=== PATIENT | female | born 1960 | race Two or more races ===

== ENCOUNTER 2021-05-11 18:44 | Emergency (ER) | payer MEDICAID, OTHER ==
[~2021-05-11] VITALS: Ht 134.6 cm; Wt 61.7 kg
[2021-05-11 18:44] VITALS: BP 153/100
== END 2021-05-12 00:35 | disposition left against medical advice (07) ==
LOC: ER 18:47
DX: R21 Rash and other nonspecific skin eruption (principal); Z53.21 Procedure and treatment not carried out due to patient leaving prior to being seen by health care provider

== ENCOUNTER 2022-10-05 03:44 | Inpatient (IN) | payer MEDICAID ==
[2022-10-05] VITALS (16 sets, daily range): BP systolic 77–164; BP diastolic 50–113
[~2022-10-05] VITALS: Ht 157.5 cm; Wt 62.0 kg
[2022-10-05] MEDS ORDERED: ETOMIDATE (2MG/ML) 20ML VIAL IV ONE ×3 (04:19→04:30)
[2022-10-05] MEDS ORDERED: ROCURONIUM 10MG/ML 10ML VIAL IV ONE ×3 (04:19→04:30)
[2022-10-05] MEDS ORDERED: MIDAZOLAM DRIP 50 mg/50mL 50 ML IV ONE (04:22)
[2022-10-05] MEDS ORDERED: methylPREDNISolone SOD SUCC 125 MG/2 ML VL ONE (04:28)
[2022-10-05] MEDS ORDERED: LIDOCAINE HCL 2 % INJ 2ML MPF NEB ONE (04:30)
[2022-10-05] MEDS: MIDAZOLAM DRIP 50 mg/50mL 50 ML IV SCH ×2 (04:40→22:53)
[2022-10-05] MEDS ORDERED: methylPREDNISolone SOD SUCC 125 MG/2 ML VL IV ONE (04:45)
[2022-10-05] MEDS ORDERED: MIDAZOLAM DRIP 50 mg/50mL 50 ML IV SCH (04:45)
[2022-10-05] MEDS ORDERED: PROPOFOL 100 ML IV ONE (05:00)
[2022-10-05] MEDS: PROPOFOL 100 ML IV SCH (05:06)
[2022-10-05] MEDS ORDERED: FAMOTIDINE (10MG/ML) 2ML VL IV ONE (05:15)
[2022-10-05] MEDS ORDERED: diphenhdrAMINE HCL 50 MG/1 ML VL IV ONE (05:15)
[2022-10-05 05:57] LABS: Basophils # (auto) 0 10 ^3/uL (0-0.2); Basophils % (auto) 0.4 % (0.0-2.0); Eosinophils # (auto) 0.1 10 ^3/uL (0-0.8); Eosinophils % (auto) 0.9 % (0.0-7.0); Hematocrit 38.3 % (36.0-46.0); Hemoglobin 13.1 g/dL (12.2-16.2); Lymphocytes # (auto) 3.6 10 ^3/uL (0.4-5.4); Lymphocytes % (auto) 39.7 % (10.0-50.0); Mean Corpuscular Hemoglobin 30.1 pg (28.0-32.0); Mean Corpuscular Hgb Conc. 34.1 g/dL (32.0-36.0); Mean Corpuscular Volume 88.4 fL (80.0-100.0); Monocytes # (auto) 0.8 10 ^3/uL (0-1.3); Monocytes % (auto) 9.2 % (0.0-12.0); Neutrophils # (auto) 4.6 10 ^3/uL (1.6-8.6); Neutrophils % (auto) 49.8 % (37.0-80.0); Nucleated Red Blood Cells % 0.1 %; Red Blood Cells 4.34 10^6/uL (4.0-5.20); Red Cell Distribution Width 13.5 % (11.8-14.3); White Blood Cell 9.1 10^3/uL (4.4-10.8)
[2022-10-05 06:17] LABS: INR 0.97 (0.9-1.15); Partial Thromboplastin Time 28.5 sec (24.6-33.4)
[2022-10-05 06:20] LABS: Albumin 3.7 g/dL (3.4-5.0); BUN/Creatinine Ratio 24.4; Potassium 3.6 mmol/L (3.5-5.1)
[2022-10-05 06:23] LABS: Bilirubin, Total 0.4 mg/dL (0.2-1.0); Total Protein 7.7 g/dL (6.4-8.2)
[2022-10-05] MEDS ORDERED: ONDANSETRON HCL 4 MG/2 ML VIAL IV PRN (06:30)
[2022-10-05] MEDS ORDERED: ACETAMINOPHEN 325 MG TAB PO PRN (06:30)
[2022-10-05] MEDS ORDERED: DEXTROSE (50%) 50ML SYRG IV PRN (06:30)
[2022-10-05] MEDS ORDERED: NITROGLYCERIN 0.4 MG SL TAB SL PRN (06:30)
[2022-10-05] MEDS ORDERED: MORPHINE SULFATE INJ 2 MG/ml SYRG IV PRN (06:30)
[2022-10-05] MEDS: SODIUM CHLORIDE 0.9% 1,000 ML IV SCH ×2 (07:07→22:45)
[2022-10-05] MEDS ORDERED: NOREPINEPHRINE 8 MG/250ML KIT 250 ML IV ONE (07:58)
[2022-10-05] MEDS: NOREPINEPHRINE 8 MG/250ML KIT 250 ML IV SCH (08:06)
[2022-10-05] MEDS: cefTRIAXone 1GM/50ML D5W 50 ML IV SCH (08:47)
[2022-10-05 08:58] LABS: Urine Bacteria FEW /hpf (None Seen); Urine Blood Negative /uL (Negative); Urine Specific Gravity 1.012 (1.001-1.035); Urine WBC 4 /hpf (0 - 5)
[2022-10-05] MEDS: AZITHROMYCIN 500MG/ 250ML 250 ML IV SCH (09:57)
[2022-10-05] MEDS: methylPREDNISolone SOD SUCC 40 MG/ML VL IV SCH ×2 (10:03→22:49)
[2022-10-05] MEDS: ENOXAPARIN SOD 40 MG/0.4 ML SYRINGE SC SCH (10:03)
[2022-10-05] MEDS: fentaNYL Drip 2500mCg/250mlNS 250 ML IV SCH (11:26)
[2022-10-05] MEDS: InsuLIN REG 1unit/0.01ml Soln (100units/ml) SC SCH ×2 (12:15→18:19)
[2022-10-05] MEDS: ACCU-CHEK COMFORT CURVE STRIP VI SCH ×2 (12:36→17:55)
[2022-10-06] VITALS (45 sets, daily range): BP systolic 113–156; BP diastolic 67–90
[2022-10-06] MEDS: ACCU-CHEK COMFORT CURVE STRIP VI SCH ×4 (00:20→18:01)
[2022-10-06] MEDS: InsuLIN REG 1unit/0.01ml Soln (100units/ml) SC SCH ×4 (00:23→18:11)
[2022-10-06] MEDS: MIDAZOLAM DRIP 50 mg/50mL 50 ML IV SCH (03:21)
[2022-10-06] MEDS: PROPOFOL 100 ML IV SCH (05:00)
[2022-10-06 06:58] LABS: Potassium 3.3 mmol/L (3.5-5.1)
[2022-10-06 06:59] LABS: Basophils # (auto) 0 10 ^3/uL (0-0.2); Eosinophils # (auto) 0 10 ^3/uL (0-0.8); Hematocrit 36.4 % (36.0-46.0); Hemoglobin 12.2 g/dL (12.2-16.2); Lymphocytes # (auto) 1.4 10 ^3/uL (0.4-5.4); Mean Corpuscular Hemoglobin 29.1 pg (28.0-32.0); Mean Corpuscular Hgb Conc. 33.4 g/dL (32.0-36.0); Mean Corpuscular Volume 87.2 fL (80.0-100.0); Monocytes # (auto) 0.4 10 ^3/uL (0-1.3); Monocytes % (auto) 2.6 % (0.0-12.0); Neutrophils # (auto) 12.3 10 ^3/uL (1.6-8.6); Neutrophils % (auto) 87.4 % (37.0-80.0); Nucleated Red Blood Cells % 0.2 %; Red Blood Cells 4.18 10^6/uL (4.0-5.20); Red Cell Distribution Width 13.6 % (11.8-14.3); White Blood Cell 14.1 10^3/uL (4.4-10.8)
[2022-10-06 07:11] LABS: BUN/Creatinine Ratio 24.1; Bilirubin, Total 0.4 mg/dL (0.2-1.0); Calcium 8.8 mg/dL (8.5-10.1); Total Protein 7.1 g/dL (6.4-8.2)
[2022-10-06] MEDS: SODIUM CHLORIDE 0.9% 1,000 ML IV SCH ×2 (07:42→22:34)
[2022-10-06] MEDS: NOREPINEPHRINE 8 MG/250ML KIT 250 ML IV SCH (07:43)
[2022-10-06] MEDS: AZITHROMYCIN 500MG/ 250ML 250 ML IV SCH (10:21)
[2022-10-06] MEDS: FAMOTIDINE (10MG/ML) 2ML VL IV SCH (10:21)
[2022-10-06] MEDS: methylPREDNISolone SOD SUCC 40 MG/ML VL IV SCH ×2 (10:21→21:49)
[2022-10-06] MEDS: ENOXAPARIN SOD 40 MG/0.4 ML SYRINGE SC SCH (10:22)
[2022-10-06] MEDS: fentaNYL Drip 2500mCg/250mlNS 250 ML IV SCH (10:45)
[2022-10-06] MEDS ORDERED: methylPREDNISolone SOD SUCC 40 MG/ML VL IV ONE (12:00)
[2022-10-06] MEDS: cefTRIAXone 1GM/50ML D5W 50 ML IV SCH (12:16)
[2022-10-07] VITALS (18 sets, daily range): BP systolic 117–159; BP diastolic 65–92
[2022-10-07] MEDS: ACCU-CHEK COMFORT CURVE STRIP VI SCH ×5 (00:03→23:33)
[2022-10-07] MEDS: InsuLIN REG 1unit/0.01ml Soln (100units/ml) SC SCH ×5 (00:08→23:35)
[2022-10-07 04:20] LABS: Basophils # (auto) 0.1 10 ^3/uL (0-0.2); Basophils % (auto) 0.5 % (0.0-2.0); Eosinophils # (auto) 0 10 ^3/uL (0-0.8); Hematocrit 36.3 % (36.0-46.0); Hemoglobin 12.1 g/dL (12.2-16.2); Lymphocytes # (auto) 0.9 10 ^3/uL (0.4-5.4); Mean Corpuscular Hemoglobin 29.5 pg (28.0-32.0); Mean Corpuscular Hgb Conc. 33.2 g/dL (32.0-36.0); Mean Corpuscular Volume 88.9 fL (80.0-100.0); Monocytes # (auto) 0.4 10 ^3/uL (0-1.3); Monocytes % (auto) 2.1 % (0.0-12.0); Neutrophils # (auto) 15.9 10 ^3/uL (1.6-8.6); Neutrophils % (auto) 92.4 % (37.0-80.0); Red Blood Cells 4.08 10^6/uL (4.0-5.20); Red Cell Distribution Width 14.3 % (11.8-14.3); White Blood Cell 17.2 10^3/uL (4.4-10.8)
[2022-10-07 04:36] LABS: Calcium 8.9 mg/dL (8.5-10.1); Potassium 3.5 mmol/L (3.5-5.1)
[2022-10-07 04:38] LABS: BUN/Creatinine Ratio 26.9
[2022-10-07] MEDS: NOREPINEPHRINE 8 MG/250ML KIT 250 ML IV SCH (08:00)
[2022-10-07] MEDS: SODIUM CHLORIDE 0.9% 1,000 ML IV SCH ×2 (08:30→12:01)
[2022-10-07] MEDS: cefTRIAXone 1GM/50ML D5W 50 ML IV SCH (08:57)
[2022-10-07] MEDS: FAMOTIDINE (10MG/ML) 2ML VL IV SCH (09:36)
[2022-10-07] MEDS: methylPREDNISolone SOD SUCC 40 MG/ML VL IV SCH ×2 (09:36→21:30)
[2022-10-07] MEDS: AZITHROMYCIN 500MG/ 250ML 250 ML IV SCH (09:37)
[2022-10-07] MEDS: ENOXAPARIN SOD 40 MG/0.4 ML SYRINGE SC SCH (09:37)
[2022-10-08 05:00] VITALS: BP 163/93
[2022-10-08] MEDS ORDERED: hydrALAZINE HCL 10 MG TAB PO PRN (05:30)
[2022-10-08] MEDS: ACCU-CHEK COMFORT CURVE STRIP VI SCH (05:48)
[2022-10-08] MEDS: InsuLIN REG 1unit/0.01ml Soln (100units/ml) SC SCH (05:50)
[2022-10-08 06:15] LABS: Basophils # (auto) 0 10 ^3/uL (0-0.2); Basophils % (auto) 0.1 % (0.0-2.0); Eosinophils # (auto) 0 10 ^3/uL (0-0.8); Hematocrit 41.7 % (36.0-46.0); Hemoglobin 13.7 g/dL (12.2-16.2); Lymphocytes # (auto) 1.2 10 ^3/uL (0.4-5.4); Lymphocytes % (auto) 10.1 % (10.0-50.0); Mean Corpuscular Hgb Conc. 32.9 g/dL (32.0-36.0); Mean Corpuscular Volume 88.1 fL (80.0-100.0); Monocytes # (auto) 0.4 10 ^3/uL (0-1.3); Monocytes % (auto) 3.1 % (0.0-12.0); Neutrophils # (auto) 10.7 10 ^3/uL (1.6-8.6); Neutrophils % (auto) 86.7 % (37.0-80.0); Red Blood Cells 4.74 10^6/uL (4.0-5.20); Red Cell Distribution Width 13.5 % (11.8-14.3); White Blood Cell 12.4 10^3/uL (4.4-10.8)
[2022-10-08 06:37] LABS: Potassium 3.9 mmol/L (3.5-5.1)
[2022-10-08 06:43] LABS: BUN/Creatinine Ratio 32.8; Calcium 9.1 mg/dL (8.5-10.1)
[2022-10-08] MEDS: cefTRIAXone 1GM/50ML D5W 50 ML IV SCH (09:00)
[2022-10-08] MEDS ORDERED: GLIP5TAB12 PO (09:41)
[2022-10-08] MEDS ORDERED: ENAL10TA13 PO (09:41)
[2022-10-08] MEDS ORDERED: METO25TA5 PO (09:43)
[2022-10-08] MEDS ORDERED: AMLO-489 PO (09:43)
[2022-10-08] MEDS ORDERED: METF-929 PO (09:43)
[2022-10-08] MEDS ORDERED: SIMV-8 PO (09:43)
[2022-10-08] MEDS ORDERED: AMOX500T86 PO (09:48)
[2022-10-08] MEDS: AZITHROMYCIN 500MG/ 250ML 250 ML IV SCH (10:00)
[2022-10-08] MEDS: FAMOTIDINE (10MG/ML) 2ML VL IV SCH (10:00)
[2022-10-08] MEDS: ENOXAPARIN SOD 40 MG/0.4 ML SYRINGE SC SCH (10:00)
[2022-10-08] MEDS: methylPREDNISolone SOD SUCC 40 MG/ML VL IV SCH (10:00)
[2022-10-08 11:48] VITALS: BP 163/93
== END 2022-10-08 12:43 | disposition home or self-care (01) | DRG 133 ==
LOC: ER 03:44 → OVERFLOW 06:26 → TELE-CENTR 10-06 10:39 → ICU WEST 10-06 10:40 → TELE-CENTR 10-07 19:15
PROVIDERS: ADMIT Nurse Practitioner; ATTEND Internal Medicine Pulmonary Disease
PROC: 30233K1 Transfusion of Nonautologous Frozen Plasma into Peripheral Vein, Percutaneous Approach (ICD-10-PCS; principal; 2022-10-05)
PROC: 5A1945Z Respiratory Ventilation, 24-96 Consecutive Hours (ICD-10-PCS; 2022-10-05)
PROC: 0BH17EZ Insertion of Endotracheal Airway into Trachea, Via Natural or Artificial Opening (ICD-10-PCS; 2022-10-05)
DX: J96.01 Acute respiratory failure with hypoxia (principal); J18.9 Pneumonia, unspecified organism; E87.3 Alkalosis; T78.3XXA Angioneurotic edema, initial encounter; T46.4X5A Adverse effect of angiotensin-converting-enzyme inhibitors, initial encounter; I10 Essential (primary) hypertension; Z20.822 Contact with and (suspected) exposure to COVID-19; E78.5 Hyperlipidemia, unspecified; E11.9 Type 2 diabetes mellitus without complications; Y92.89 Other specified places as the place of occurrence of the external cause
CPT/HCPCS: 31500; 36415; 36600; 70490; 71045; 80048; 80053; 81001; 82805; 82962; 83735; 83880; 84484; 85025; 85610; 85730; 86850; 86900; 86901; 87070; 87081; 87205; 87426; 93005; 94002; 94003; 96374; 96375; 97163; 99291; G0378; J0696; J1815; J2250; J2704; J3490

== ENCOUNTER 2023-09-15 14:26 | Emergency (ER) | payer MEDICAID ==
[~2023-09-15] VITALS: Ht 121.9 cm; Wt 60.8 kg
[~2023-09-15 14:26] MED LIST: AMLO1TAB22 PO; AMOX500T86 PO; GLIP5TAB12 PO; METF-929 PO; METO25TA5 PO; SIMV20TA20 PO
[2023-09-15 16:09] VITALS: BP 149/93; PULSE 100; RESP 19; TEMP 97.6; O2SAT 97
[2023-09-15] MEDS ORDERED: ACET-1304 PO (16:15)
[2023-09-15] MEDS ORDERED: CEPH500C PO (16:15)
== END 2023-09-15 16:23 | disposition home or self-care (01) ==
LOC: ER 14:26
DX: S81.831D Puncture wound without foreign body, right lower leg, subsequent encounter (principal); I10 Essential (primary) hypertension; E11.9 Type 2 diabetes mellitus without complications; E78.5 Hyperlipidemia, unspecified; Z79.2 Long term (current) use of antibiotics; Z79.899 Other long term (current) drug therapy; X58.XXXD Exposure to other specified factors, subsequent encounter

== ENCOUNTER 2023-12-07 21:43 | Emergency (ER) | payer MEDICAID ==
[~2023-12-07] VITALS: Ht 157.5 cm; Wt 59.7 kg
[~2023-12-07 21:43] MED LIST changes: +ACET-1304 PO; +CEPH500C PO; -GLIP5TAB12 PO; +GLIP5TAB21 PO
[2023-12-07 21:59] VITALS: BP 128/80
[2023-12-07 23:15] VITALS: PULSE 75; RESP 18; O2SAT 99
== END 2023-12-07 23:22 | disposition home or self-care (01) ==
LOC: ER 21:43
DX: S00.83XA Contusion of other part of head, initial encounter (principal); F10.129 Alcohol abuse with intoxication, unspecified; Y90.9 Presence of alcohol in blood, level not specified; E11.9 Type 2 diabetes mellitus without complications; E78.5 Hyperlipidemia, unspecified; I10 Essential (primary) hypertension; W17.89XA Other fall from one level to another, initial encounter; Y93.89 Activity, other specified; Y92.89 Other specified places as the place of occurrence of the external cause; Y99.8 Other external cause status
CPT/HCPCS: 70486

== ENCOUNTER 2025-04-11 09:57 | Emergency (ER) | payer OTHER, MEDICAID ==
[~2025-04-11] VITALS: Ht 154.9 cm; Wt 57.0 kg
--- NOTE | 2025-04-11 10:20 | ED.PDOC ---
Back pain HPI HPI Comments A 64 YEAR OLD FEMALE PRESENTS TO THE ED WITH COMPLAINT OF RIGHT HIP PAIN THAT RADIATES DOWN RIGHT LEG. PATIENT STATES SHE HAS BEEN EXPERIENCING RIGHT HIP PAIN THAT RADIATES DOWN HER RIGHT LEG FOR THE PAST 4 DAYS. PATIENT DENIES SADDLE ANESTHESIA, URINARY INCONTINENCE, BOWEL INCONTINENCE, FEVER, CHILLS, SHORTNESS OF BREATH, CHEST PAIN, ABDOMINAL PAIN, NAUSEA, VOMITING, HEADACHE, OR OTHER COMPLAINTS. NO OTHER SYMPTOMS OR MODIFYING FACTORS AT THIS TIME. PATIENT IS ALERT, ORIENTED X 4, AND HAS STEADY GAIT. Chief Complaint: Lower Extremity Time Seen by MD: 10:03 Reviewed Notes: Nurses Notes, Medications, Allergies Allergies: Coded Allergies: No Known Drug Allergy (Verified Allergy, Unknown, 05/11/21) Home Meds Active Scripts Tramadol HCl (Tramadol HCl) 50 Mg Tab, 50 MG PO BID, #20 TAB Prov:HARLEEN GRAY 04/11/25 Acetaminophen (Tylenol Extra Strength Fo) 500 Mg Tab, 500 MG PO TID, #30 TAB Prov:HARLEEN GRAY 09/15/23 Cephalexin Monohydrate (Cephalexin) 500 Mg Cap, 1 CAP PO TID, #30 CAP Prov:HARLEEN GRAY 09/15/23 Amoxicillin & Pot Clavulanate (Augmentin) 500 Mg Tab, 1 TAB PO BID, #10 TAB Prov:MIRZA CRAMER MD 10/08/22 Reported Medications Metformin HCl (Metformin Hydrochloride) 1,000 Mg Tab, 1000 MG PO, TAB 10/08/22 Metoprolol Tartrate (Metoprolol Tartrate) 25 Mg Tab, 25 MG PO for 30 Days, MG 10/08/22 Simvastatin (Simvastatin) 20 Mg Tab, 20 MG PO DAILY for 30 Days 10/08/22 Amlodipine Besylate (Amlodipine Besylate) 5 Mg Tab, 5 MG PO DAILY for 30 Days, MG 10/08/22 Glipizide (Glipizide) 5 Mg Tab, 5 MG PO for 30 Days, MG 10/08/22 Information Source: Patient Mode of Arrival: Ambulatory Timing: Days Duration: Since onset Location of Back pain: Other (HIP) Radiates to: Posterior: (R) Buttocks, (R) Calf, (R) Thigh Radiates to: Medial: (R) Buttocks, (R) Calf, (R) Thigh Radiates to: Lateral: (R) Buttocks, (R) Calf, (R) Thigh Severity: Moderate Prehospital treatment: None Quality: Aching, Cramping Onset: Spontaneous History of: None Modifying Factors: Movement Associated signs and symptoms: None Past Medical History PAST MEDICAL HISTORY: DM, High Lipids, HTN Surgical History: Denies all surgeries 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 Family History Family History: Reviewed,noncontributory to illness, No family hx of Cancer, No family hx of DM, No family hx of Heart gustavo, No family hx of HTN, No family hx ofKidney gustavo, No family hx of Liver gustavo, No family hx of Lung gustavo, No family hx of Stroke Social History Smoker: Non-Smoker Alcohol: Denies ETOH Use Drugs: Denies Drug Use Lives In: Home Constitutional: denies: chills, diaphoresis, fatigue, fever, malaise, sweats, weakness, others EENTM: denies: blurred vision, double vision, ear bleeding, ear discharge, ear drainage, ear pain, ear ringing, eye pain, eye redness, hearing loss, mouth pain, mouth swelling, nasal discharge, nose bleeding, nose congestion, nose pain, photophobia, tearing, throat pain, throat swelling, voice changes, others Respiratory: denies: cough, hemoptysis, orthopnea, SOB at rest, shortness of breath, SOB with excertion, stridor, wheezing, others Cardiovascular: denies: chest pain, dizzy spells, diaphoresis, Dyspnea on exertion, edema, irregular heart beat, left arm pain, lightheadedness, palpitations, PND, syncope, others Gastrointestinal: denies: abdomen distended, abdominal pain, blood streaked bowels, constipated, diarrhea, dysphagia, difficulty swallowing, hematemesis, melena, nausea, poor appetite, poor fluid intake, rectal bleeding, rectal pain, vomiting, others Genitourinary: denies: abnormal vagina bleeding, burning, dyspareunia, dysuria, flank pain, frequency, hematuria, incontinence, pain, , vagina discharge, urgency, others Neurological: denies: dizziness, fainting, headache, left sided numbness, left sided weakness, numbness, paresthesia, pre-existing deficit, right sided num bness, right sided weakness, seizure, speech problems, tingling, tremors, weakness, others Musculoskeletal: reports: back pain, muscle pain, others (RIGHT HIP PAIN THAT RADIATES DOWN RIGHT LEG); denies: gout, joint pain, joint swelling, muscle stiffness, neck pain Integumetry: denies: bruises, change in color, change in hair/nails, dryness, laceration, lesions, lumps, rash, wounds, others Allergic/Immunocompromised: denies: Difficulty Healing, Frequent Infections, Hives, Itching, others Hematologic/Lymphatic: denies: anemia, blood clots, easy bleeding, easy bruising, swollen glands, others Endocrine: denies: excessive hunger, excessive sweating, excessive thirst, excessive urination, flushing, intolerance to cold, intolerance to heat, unexplained weight gain, unexplained weight loss, others Psychiatric: denies: anxiety, bipolar disorder, depression, hopeless, panic disorder, schizophrenia, sleepless, suicidal, others All Other Systems: Reviewed and Negative Physical Exam General Appearance: No Apparent Distress, Normal HEENT: Normal ENT Inspection, PERRL/EOMI, Pharynx Normal, TMs Normal Neck: Full Range of Motion, Non-Tender, Normal, Normal Inspection Respiratory: Chest Non-Tender, Lungs Clear, No Accessory Muscle Use, No Respiratory Distress, Normal Breath Sounds Cardiovascular: No Edema, No JVD, No Murmur, No Gallop, Normal Peripheral Pulses, Regular Rate/Rhythm Breast Exam: Deferred Gastrointestinal: No Organomegaly, Non Tender, No Pulsatile Mass, Normal Bowel Sounds, Soft Genitalia: Deferred Pelvic: Deferred Rectal: Deferred Extremities: No calf tenderness, Normal capillary refill, Normal inspection, Normal range of motion, Non-tender, No pedal edema, Other (NO REDNESS, SWELLING AND DVT SIGNS OF RIGHT LOWER LEG, NO DVT SIGNS. ) Musculoskeletal : Location: Bilateral Extremity Location: Back Apperance: Tenderness (AND MUSCLE SPASM ON LOW BACK, NO BONY TENDERNESS, SWELLING AND DEFORMITY. ) Neurologic: Alert, softball umpire II-XII nml as Tested, No Motor Deficits, Normal Affect, Normal Mood, No Sensory Deficits Cerebellar Function: Normal Reflexes: Normal Skin: Dry, Normal Color, Warm Peripheral Pulses: 2+ carotid (R), 2+ carotid (L), 2+ dorsalis pedis (R), 2+ dorsalis pedis (L) Lymphatic: No Adenopathy Was a procedure done? Was a procedure done?: No Back Pain Differential Dx Differential Diagnosis: DJD, Musculoskeletal Pain, Strain Other Differential Diagnosis DDD, LUMBAR RADICULOPATHY X-Ray, Labs, Meds, VS Vital Signs Date Time Temp Pulse Resp B/P (MAP) Pulse Ox O2 Delivery O2 Flow Rate FiO2 04/11/25 09:59 97.8 88 20 134/82 95 97.8 EXAM: XY LUMBAR SPINE 2 VIEW HISTORY: LOWER BACK PAIN TO RIGHT LOWER LEG COMPARISON: None TECHNIQUE: AP and lateral views of the lumbar spine were performed. FINDINGS: No fracture or listhesis of the lumbar spine. There is grade 1 anterolisthesis L4 on L5 measuring 5 mm AP. There is vtsl-ww-yxwzfhur lower lumbar degenerative disc disease and facet arthropathy. There is fecal retention in the colon. IMPRESSION: 1. No fracture of the lumbar spine. 2. Epbg-[id number] lower lumbar degenerative disc disease and facet arthropathy. 3. Fecal retention in the colon suggestive of constipation. ATED BY: GONZALEZ MCCLOUD MD DICTATED DATE/TIME: 04/11/25 105 SIGNED BY: GONZALEZ MCCLOUD MD SIGNED DATE/TIME: 04/11/25 105 CC: X-Ray, Labs, Meds, VS Comment EXTERNAL MEDICAL RECORDS REVIEWED: [NONE] INDEPENDENT HISTORIANS: [NONE] SOCIAL DETERMINANTS OF HEALTH: [NONE] LABS ORDERED: NONE REVIEWED AND INTERPRETED RESULTS: NONE IMAGING ORDERED: XR L-SPINE TREATMENTS ORDERED: NONE PROCEDURES PERFORMED: NONE CRITICAL CARE TIME: NONE I HAVE DISCUSSED THE PATIENT WITH THE ATTENDING PHYSICIAN DR. GRANT AND HE AGREES WITH THE PATIENT'S PLAN OF CARE AND DISPOSITION. BASED ON HISTORY OF PRESENT ILLNESS, AND PHYSICAL EXAM, PATIENT WILL BE DISCHARGED HOME. DISCUSSED PLAN FOR DISCHARGE HOME WITH RX [ULTRAM]. MEDICATION WARNINGS GIVEN. SHARED DECISION MAKING: DISCUSSED WITH PATIENT THAT THEIR WORKUP WAS NORMAL. PATIENT INSTRUCTED TO FOLLOW UP WITH PRIMARY CARE PROVIDER IN 1-2 DAYS FOR RE- EVALUATION OF SYMPTOMS. PATIENT VERBALIZES UNDERSTANDING TO RETURN TO ED FOR NEW OR WORSENING SYMPTOMS OR IF FOLLOW UP WITH PCP CANNOT BE OBTAINED. PATIENT FEELS COMFORTABLE GOING HOME AT THIS TIME. ALL QUESTIONS ADDRESSED AT TIME OF DISCHARGE. Images Reviewed?: Images reviewed and evaluated by me Time of 1ST Reevaluation: 11:20 Reevaluation 1ST: Improved Patient Education/Counseling: Diagnosis, Treatment, Need For Follow Up Family Education/Counseling: Diagnosis, Treatment, Need For Follow Up Medical Screening: No EMC Exist At This Time SEPSIS Sepsis Screen Date sepsis recognized/suspect: Apr 11, 2025 Time Sepsis recognized/suspect: 1000 Recent Procedure: No On Antibiotic Therapy: No Respiratory Rate >20: No Heart Rate >90: No Temp<36 C (96.8 F) or >38.3 C: No SBP <90 or MAP <65 mmHG: No New Acute Mental Status Change: No Is the patient on CPAP, BIPAP,: No Physician Orders Lumbar Spine 3 View (04/11/25 10:25) Vital Signs Date Time Temp Pulse Resp B/P (MAP) Pulse Ox O2 Delivery O2 Flow Rate FiO2 04/11/25 09:59 97.8 88 20 134/82 95 97.8 Departure 1 Departure Time of Disposition: 11:20 Impression: Primary Impression: DDD (degenerative disc disease), lumbar Qualified Codes: M51.362 - Other intervertebral disc degeneration, lumbar region with discogenic back pain and lower extremity pain Additional Impression: Lumbar radiculopathy Disposition: [address] [place] [address] Condition: Stable Additional Instructions: FOLLOW-UP WITH PCP IN 1 TO 2 DAYS. TAKE MEDICATIONS PRESCRIBED. RETURN TO ED FOR ANY NEW OR WORSENING SYMPTOMS. e-Prescriptions Tramadol HCl (Tramadol HCl) 50 Mg Tab 50 MG PO BID, #20 TAB Prov: HARLEEN GRAY 04/11/25 Discharged With: Self, Relative Critical Care Note Critical Care Time?: No Stability Stability form required: No I personally scribed for HARLEEN GRAY ([email or web address]) on 04/11/25 at 10:20. Electronically submitted by Nathaniel Wood ([facility] [place]). I personally scribed for HARLEEN GRAY ([email or web address]) on 04/11/25 at 11:03. Electronically submitted by Nathaniel Wood ([employer]arm[employer]). I personally scribed for HARLEEN GRAY ([email or web address]) on 04/11/25 at 11:14. Electronically submitted by Nathaniel Wood (PharmMD). HARLEEN GRAY Apr 11, 2025 10:20
--- NOTE | 2025-04-11 10:59 | DVH ---
EXAM: XY LUMBAR SPINE 2 VIEW HISTORY: LOWER BACK PAIN TO RIGHT LOWER LEG COMPARISON: None TECHNIQUE: AP and lateral views of the lumbar spine were performed. FINDINGS: No fracture or listhesis of the lumbar spine. There is grade 1 anterolisthesis L4 on L5 measuring 5 mm AP. There is dzso-mo-kweqzgki lower lumbar degenerative disc disease and facet arthropathy. There is fecal retention in the colon. IMPRESSION: 1. No fracture of the lumbar spine. 2. Difr-nc-tyysfngu lower lumbar degenerative disc disease and facet arthropathy. 3. Fecal retention in the colon suggestive of constipation.
[2025-04-11] MEDS ORDERED: TRAM-626 PO (11:18)
[2025-04-11 11:27] VITALS: BP 116/77; PULSE 81; RESP 16; TEMP 97.9; O2SAT 97
== END 2025-04-11 11:28 ==
LOC: ER 09:57
DX: M51.16 Intervertebral disc disorders with radiculopathy, lumbar region (principal); M47.26 Other spondylosis with radiculopathy, lumbar region; I10 Essential (primary) hypertension; E11.9 Type 2 diabetes mellitus without complications; E78.5 Hyperlipidemia, unspecified; Z79.899 Other long term (current) drug therapy; Z79.84 Long term (current) use of oral hypoglycemic drugs
CPT/HCPCS: 72100

== ENCOUNTER 2025-04-29 10:39 | Inpatient (IN) | payer OTHER, MEDICAID ==
[~2025-04-29] VITALS: Ht 149.9 cm; Wt 61.9 kg
[~2025-04-29 10:39] MED LIST changes: +TRAM-626 PO
--- NOTE | 2025-04-29 10:50 | ECG ---
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
[2025-04-29 11:19] LABS: Hematocrit 39.3 % (36.0-46.0); Hemoglobin 13.4 g/dL (12.2-16.2); Mean Corpuscular Hemoglobin 29.1 pg (28.0-32.0); Mean Corpuscular Volume 85.2 fL (80.0-100.0); Nucleated Red Blood Cells % 0.2 %
--- NOTE | 2025-04-29 11:24 | ED.PDOC ---
HPI Comments HPI: Poor Historian. 64-year-old female who presents to the ED for complaint of chest pain Patient states that she has been having left upper back pain media into the left side of the chest since last night p.m. Patient states the pain is pressure-like in nature with noted exacerbation of pain worse with left arm movement and no relieving factors Patient has associated nausea with the was denies vomiting shortness of breath diaphoresis palpitation or associated symptoms Patient and the ED has not noted blood pressure of 147/83 and heart rate of 114 but otherwise stable vitals including O2 saturation of 99% on room air Patient otherwise denies any other symptoms at this time Past Medical History: Hypertension, diabetes, hyperlipidemia, tachycardic, anxiety, arthritis, brain tumor Past Surgical History: Disclosed abdominal surgery Medications: Unknown Allergies: Denies Social history, denies ETOH, denies drug use, denies tobacco use pauline Garcia: L chest pressure, L shoulder pain, worse with LUE movement, no fall/trauma. REVIEW OF SYSTEMS: CONSTITUTIONAL: Denies acute: fever, diaphoresis, chills, generalized weakness. HEAD: Denies acute: headache, photophobia Eyes: Denies acute: Double vision, vision loss, eye pain, eye discharge. EARS: Denies acute: tinnitus, hearing loss, ear discharge, ear pain, THROAT: Denies acute: sore throat, swelling, difficulty swallowing , pain with swallowing, change in voice. NECK: Denies acute: neck pain, neck swelling, stiff neck. HEART: Denies acute : palpitations, LUNGS: Denies acute: SOB, wheezing, cough, hemoptysis ABDOMEN: Denies acute: abdominal pain, Nausea, Vomiting, diarrhea, melena , hematemesis, hematochezia SKIN: Denies acute: rash, redness, lesions, itchiness. EXTREMITIES: Denies acute: calf pain, numbness, tingling, weakness, denies pain in extremity. Denies acute: Low back pain. Neuro: Denies acute: focal neurological deficit, motor or sensory focal neurological deficit, tremors, seizure like activity, confusion, dizziness, change in mental status, loss of bowel or bladder function, cauda equina like symptoms. : Denies acute: dysuria, hematuria, flank pain, increase in urinary frequency. PSYCH: Denies acute: hallucination, suicidal ideation, homicidal ideation. FEMALE: Denies acute: abnormal vaginal bleeding, foul odor, unusual discharge. PHYSICAL EXAM: General: -----mild---acute distress, awake and alert. Head: normocephalic, atraumatic. Neck: supple, trachea is midline, no swelling. Throat: Normal phonation. Eyes:, no erythema, no purulent discharge, no proptosis, no icterus. Heart: regular rate, regular rhythm, no significant murmur appreciated. Lungs: no apparent respiratory distress, Able to speak in full sentences. No wheezing, no rhonchi, no crackles. No stridors Clear to auscultation bilaterally. Abdomen: non tender to palpation, non distended, soft, no guarding, no rebound, + bowel sounds. Neuro: Awake, Alert, oriented to name, self, situation, follows commands GCS=15. Speech is normal. Skin: no petechia, no purpura, no cyanosis, non-pale, not jaundice. Lower extremities: --no - Pitting edema no deformity, no focal swelling, no calf TTP. Makes eye contact. moves all four extremities. Face: no apparent facial droop. Ambulating in the ED independently. ED COURSE: DISCLAIMER: This medical document was created using an electronic medical record system with voice recognition software and computerized dictation system. Although this document has been carefully reviewed, there might still be some phonetic and typographical errors. Occasional wrong-word or "sound-alike" substitutions may have occurred due to the inherent limitations of voice recognition software. These areas are purely typographical due to imperfections of the software programs and do not reflect any compromise in the patient's medical care. Please read the chart carefully and recognize, using context, where these substitutions have occurred. Chief Complaint: Back Pain Time Seen by MD: 10:53 Reviewed Notes: Medications, Allergies Allergies: Coded Allergies: No Known Drug Allergy (Verified Allergy, Unknown, 05/11/21) Home Meds Active Scripts Tramadol HCl (Tramadol HCl) 50 Mg Tab, 50 MG PO BID, #20 TAB Prov:HARLEEN GRAY 04/11/25 Acetaminophen (Tylenol Extra Strength Fo) 500 Mg Tab, 500 MG PO TID, #30 TAB Prov:HARLEEN GRAY 09/15/23 Cephalexin Monohydrate (Cephalexin) 500 Mg Cap, 1 CAP PO TID, #30 CAP Prov:HARLEEN GRAY 09/15/23 Amoxicillin & Pot Clavulanate (Augmentin) 500 Mg Tab, 1 TAB PO BID, #10 TAB Prov:MIRZA CRAMER MD 10/08/22 Reported Medications Metformin HCl (Metformin Hydrochloride) 1,000 Mg Tab, 1000 MG PO, TAB 10/08/22 Metoprolol Tartrate (Metoprolol Tartrate) 25 Mg Tab, 25 MG PO for 30 Days, MG 10/08/22 Simvastatin (Simvastatin) 20 Mg Tab, 20 MG PO DAILY for 30 Days 10/08/22 Amlodipine Besylate (Amlodipine Besylate) 5 Mg Tab, 5 MG PO DAILY for 30 Days, MG 10/08/22 Glipizide (Glipizide) 5 Mg Tab, 5 MG PO for 30 Days, MG 10/08/22 Information Source: Patient Mode of Arrival: Ambulatory Past Medical History PAST MEDICAL HISTORY: DM, High Lipids, HTN Surgical History: Denies all surgeries 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 Was a procedure done?: No CP Differential Dx Differential Diagnosis: N/A Differential Diagnosis: Other (Ddx include but not limitied to gastritis, mu sculoskeletal pain, radiculopathy, atypical chest pain, dissection, aneurysm, ACS, unstable angina, hiatal hernia, GERD, anxiety, costochondritis, PE, pneumothroax, neoplasm, cardiac ischemia, drug abuse, anemia.) X-Ray, Labs, Meds, VS Vital Signs Date Time Temp Pulse Resp B/P (MAP) Pulse Ox O2 Delivery O2 Flow Rate FiO2 04/29/25 13:11 86 9/29/25 13:11 86 18 128/83 (98) 100 04/29/25 13:10 125/83 04/29/25 13:10 109 04/29/25 10:49 109 04/29/25 10:40 97.7 114 18 147/83 99 97.7 Lab Test 04/29/25 13:40 04/29/25 11:50 04/29/25 11:03 Range/Units Troponin I High Sensitivity < 3 L < 3 L < 3 L </=34 ng/L Triglycerides Level 210 H < 150 mg/dL Cholesterol Level 146 < 200 mg/dL LDL Cholesterol 74 < 100 mg/dL HDL Cholesterol 53 40-59 mg/dL Lipase 88 H 12-53 U/L White Blood Count 9.4 4.4-10.8 10^3/uL Red Blood Count 4.62 4.0-5.20 10^6/uL Hemoglobin 13.4 12.2-16.2 g/dL Hematocrit 39.3 36.0-46.0 % Mean Corpuscular Volume 85.2 80.0-100.0 fL Mean Corpuscular Hemoglobin 29.1 28.0-32.0 pg Mean Corpuscular Hemoglobin Concent 34.2 32.0-36.0 g/dL Red Cell Distribution Width 14.0 11.8-14.3 % Platelet Count 317 140-450 10^3/uL Mean Platelet Volume 8.4 6.9-10.8 fL Neutrophils (%) (Auto) 64.6 37.0-80.0 % Lymphocytes (%) (Auto) 26.0 10.0-50.0 % Monocytes (%) (Auto) 7.8 0.0-12.0 % Eosinophils (%) (Auto) 0.9 0.0-7.0 % Basophils (%) (Auto) 0.7 0.0-2.0 % Neutrophils # (Auto) 6.1 1.6-8.6 10 ^3/uL Lymphocytes # (Auto) 2.4 0.4-5.4 10 ^3/uL Monocytes # (Auto) 0.7 0-1.3 10 ^3/uL Eosinophils # (Auto) 0.1 0-0.8 10 ^3/uL Basophils # (Auto) 0.1 0-0.2 10 ^3/uL Nucleated Red Blood Cells 0.2 % Sodium Level 139 136-145 mmol/L Potassium Level 3.7 3.5-5.1 mmol/L Chloride Level 100 98-107 mmol/L Carbon Dioxide Level 27 20-31 mmol/L Anion Gap 12 5-15 Blood Urea Nitrogen 11 9-23 mg/dL Creatinine 0.82 0.550-1.02 mg/dL Glomerular Filtration Rate Calc 79 >90 mL/min BUN/Creatinine Ratio 13.4 10.0-20.0 Serum Glucose 145 H 74-106 mg/dL Hemoglobin A1c 6.2 H <5.7 % A1C Calcium Level 9.1 8.7-10.4 mg/dL Total Bilirubin 0.3 0.2-1.0 mg/dL Aspartate Amino Transferase (AST) 23 13-40 U/L Alanine Aminotransferase (ALT) 16 7-40 U/L Alkaline Phosphatase 119 H 46-116 U/L B-Type Natriuretic Peptide 17.24 0-100 pg/mL Total Protein 8.0 5.7-8.2 g/dL Albumin 4.8 3.2-4.8 g/dL Thyroid Stimulating Hormone (TSH) 1.37 0.55-4.78 uIU/mL Current Medications Medications (Trade) Dose Ordered Sig/Singh Route Start Time Stop Time Status Last Admin Nitroglycerin (Ntrostat Sublingual) 0.4 mg ONCE ONCE SL 04/29/25 12:45 04/29/25 12:46 DC 04/29/25 13:10 [place] [address] Ph: [phone] DIAGNOSTIC IMAGING Diagnostic Imaging Report : [id number] Signed PATIENT: PAULINE HENRYIAACCT: [id number] UNIT: [id number] : 1960 LOC: ER ROOM / BED: / AGE / SEX: 64 / F ADM STATUS: REG ER SERVICE 1053 ORDERING PHYSICIAN: ISACC CÁRDENAS DO PROCEDURE(s): CXRP - CHEST PORTABLE REASON: cp ORDER NUMBER(s): [id number], ACCESSION NUMBER(s): [id number] EXAM: XY CHEST PORTABLE HISTORY: cp TECHNIQUE: 1 view of the chest COMPARISON: XY CHEST XRAY 1 VIEW on DOS: 10/05/22 FINDINGS/IMPRESSION: LUNGS: No pleural effusion, consolidation, or pneumothorax. MEDIASTINUM: Unremarkable. BONES: No acute osseous abnormality. OTHER: None. ATED BY: MIKEL MURPHY MD DICTATED DATE/TIME: 04/29/25 114 SIGNED BY: MIKEL MURPHY MD SIGNED DATE/TIME: 04/29/25 114 CC: Time of 1ST Reevaluation: 20:23 Reevaluation 1ST: N/A Patient Education/Counseling: Diagnosis, Treatment Family Education/Counseling: No Family Present Comments MDM: patient presented with the above HPI. Cardiac------workup was initiated. patient was found with the above mentioned diagnosis. the following medications were ordered: please refer to order lists of meds and tests obtained by myself Dr. Cárdenas. Patient ED course and VS have been stabilized. Patient has been reassessed in the ED and remained in a stable condition. Pertinent incidental findings were discussed with the patient and/or family. Patient/family voices understanding and is agreeable with plan. Patient has been observed in the ED adequate length of time to insure improvement/stability. Escalation of care considered: Consideration of escalation to observation or admission Heart score is moderate risk. Patient was ADMITTED to the medicine team for further evaluation and treatment of their presentation. All the reports of any imaging studies that were ordered by myself were reviewed by myself. SEPSIS Sepsis Screen Date sepsis recognized/suspect: Apr 29, 2025 Time Sepsis recognized/suspect: 1040 Recent Procedure: No On Antibiotic Therapy: No Respiratory Rate >20: No Heart Rate >90: Yes Temp<36 C (96.8 F) or >38.3 C: No SBP <90 or MAP <65 mmHG: No New Acute Mental Status Change: No Is the patient on CPAP, BIPAP,: No Physician Orders Electrocardigram (04/29/25 11:45) Electrocardigram (04/29/25 13:45) Route Sales Representative (04/29/25 ) Chest Portable (04/29/25 10:53) Vital Signs Date Time Temp Pulse Resp B/P (MAP) Pulse Ox O2 Delivery O2 Flow Rate FiO2 04/29/25 13:11 86 04/29/25 13:11 86 18 128/83 (98) 100 04/29/25 13:10 125/83 04/29/25 13:10 109 04/29/25 10:49 109 04/29/25 10:40 97.7 114 18 147/83 99 97.7 Laboratory Tests Test 04/29/25 11:03 White Blood Count 9.4 10^3/uL (4.4-10.8) Medications Medications Dose Ordered Sig/Singh Route Start Time Stop Time Status Last Admin Dose Admin Nitroglycerin 0.4 mg ONCE ONCE SL 04/29/25 12:45 04/29/25 12:46 DC 04/29/25 13:10 Departure 1 Departure Time of Disposition: 12:42 Impression: Primary Impression: Chest pain at rest Disposition: ADMITTED INPATIENT Admit to: Tele Condition: Guarded Discharged With: Self Critical Care Note Critical Care Time?: No Heart Score Heart Score: Heart Score Response (Comments) Value History Slightly Suspicious 0 EKG Normal 0 Age >65 2 Risk Factors >3 or Hx ASHD 2 Troponin Normal limit 0 Total 4 I personally scribed for ISACC CÁRDENAS DO ([email or web address]) on 04/29/25 at 11:24. Electronically submitted by Michael Edwards ([facility] CITYRingMD). I personally scribed for ISACC CÁRDENAS DO ([email or web address]) on 04/29/25 at 13:10. Electronically submitted by Michael Edwarsd ([facility] CITYBad Donkey Social CompanyRUDYkinkon). ISACC CÁRDENAS DO Apr 29, 2025 11:24
[2025-04-29 11:40] LABS: Alanine Aminotransferase 16 U/L (7-40); Albumin 4.8 g/dL (3.2-4.8); Anion Gap 12 (5-15); BUN/Creatinine Ratio 13.4 (10.0-20.0); Blood Urea Nitrogen 11 mg/dL (9-23); Calcium 9.1 mg/dL (8.7-10.4); Carbon Dioxide 27 mmol/L (20-31); Chloride 100 mmol/L (98-107); Potassium 3.7 mmol/L (3.5-5.1); Sodium 139 mmol/L (136-145); Total Protein 8.0 g/dL (5.7-8.2)
[2025-04-29 11:41] LABS: Alkaline Phosphatase 119 U/L (46-116); Bilirubin, Total 0.3 mg/dL (0.2-1.0); Glucose 145 mg/dL (74-106)
--- NOTE | 2025-04-29 11:45 | DVH ---
EXAM: XY CHEST PORTABLE HISTORY: cp TECHNIQUE: 1 view of the chest COMPARISON: XY CHEST XRAY 1 VIEW on DOS: 10/05/22 FINDINGS/IMPRESSION: LUNGS: No pleural effusion, consolidation, or pneumothorax. MEDIASTINUM: Unremarkable. BONES: No acute osseous abnormality. OTHER: None.
[2025-04-29] MEDS: ASPirin-EC 325mg tab PO ONE (12:45)
[2025-04-29] MEDS: NITROGLYCERIN 0.4 MG SL TAB SL ONE (13:10)
[2025-04-29] MEDS ORDERED: ACETAMINOPHEN 325 MG TAB PO PRN (13:45)
[2025-04-29] MEDS ORDERED: NITROGLYCERIN 0.4 MG SL TAB SL PRN (14:00)
[2025-04-29] MEDS ORDERED: DEXTROSE (50%) 50ML SYRG IV PRN (14:15)
[2025-04-29 14:27] LABS: HDL Cholesterol 53 mg/dL (40-59); Triglycerides 210 mg/dL (< 150)
[2025-04-29 14:28] LABS: Cholesterol 146 mg/dL (< 200)
[2025-04-29] MEDS ORDERED: MORPHINE SULFATE 4 MG/ML SYR/VIAL IV PRN (14:45)
--- NOTE | 2025-04-29 14:53 | DVHHPRES ---
History of Present Illness Resident Creating Document: TOÑITO RAYMUNDO RESIDENT History of Present Illness 64-year-old female Rdaha Galo is a Eritrean speaking lady with a past medical history of hypertension, diabetes mellitus type 2, hyperlipidemia, arthritis, brain tumor came in with complaints of 1 day of left-sided upper back pain that radiates to the front of her Left chest. Patient reports that the pain is 8/10 in intensity, began suddenly yesterday, continuous in nature, increased by movement of the left arm, and has no relieving factors. It is not associated with shortness of breath, retrosternal chest pain, cough, nausea, or vomiting. She hasnt taken any pain medications at home. She denies any sick contacts, travel history or any mechanical falls. Chest x-ray in the emergency was normal, serial troponins were negative, WBC and BNP normal. Patient will be admitted to telemetry for further workup of chest pain PMH: Hypertension, diabetes type 2, hyperlipidemia, arthritis, brain tumor Past surgical history: Appendectomy Family history: Reviewed and noncontributory to the management of this case Social history: Patient denies taking any alcohol, drugs and denies tobacco use Allergies: Denies Medications: Amlodipine 5 mg, simvastatin 20 mg, metoprolol 25 mg, metformin 1000 mcg, alendronate 70 mg Code status: Full code Review of Systems Constitutional: No: Fever, Chills, Sweats, Weakness, Malaise, Other Eyes: No: Pain, Vision change, Conjunctivae inflammation, Eyelid inflammation, Other, Redness ENT: No: Ear pain, Ear discharge, Nose pain, Nose discharge, Nose congestion, Mouth pain, Mouth swelling, Throat pain, Throat swelling, Other Respiratory: No: Cough, Dry, Shortness of breath, SOB with excertion, Wheezing, Hemoptysis, Pleuritic Pain, Sputum, Wheezing, Other Cardiovascular: Chest Pain; No: Palpitations, Orthopnea, Paroxysmal Noc. Dyspnea, Edema, Lt Headedness, Other Gastrointestinal: No: Nausea, Vomiting, Abdominal Pain, Diarrhea, Constipation, Melena, Hematochezia, Other Genitourinary: No Dysuria, No Frequency, No Incontinence, No Hematuria, No Retention, No Other Musculoskeletal: shoulder pain; No: other, neck pain, arm pain, back pain, hand pain, leg pain, foot pain Skin: No: Rash, Lesions, Jaundice, Bruising, Other Neurological: No: Weakness, Numbness, Incoordination, Change in speech, Confusion, Seizures, Other Allergies: Coded Allergies: No Known Drug Allergy (Verified Allergy, Unknown, 05/11/21) Medications Current Medications Medications Dose Ordered Sig/Singh Route Start Time Stop Time Status Last Admin Dose Admin Enoxaparin Sodium 40 mg DAILY SC 04/30/25 10:00 Acetaminophen 650 mg Q6HP PRN PO 04/29/25 13:45 Nitroglycerin 0.4 mg Q5MINP PRN SL 04/29/25 14:00 UNV Morphine Sulfate 2 mg Q30M PRN IV 04/29/25 14:00 UNV Acetaminophen 500 mg TID PO 04/29/25 22:00 UNV Amlodipine Besylate 5 mg DAILY PO 04/30/25 10:00 UNV Metoprolol Tartrate 25 mg DAILY PO 04/30/25 10:00 UNV Tramadol HCl 50 mg BID PO 04/29/25 22:00 UNV Patient Own Medication 20 mg DAILY PO 04/30/25 10:00 UNV Diagnostic Test (Pha) 1 strip Q6HR 04/29/25 18:00 UNV Insulin Human Regular Q6HR SC 04/29/25 18:00 UNV Dextrose 50 ml UD PRN IV 04/29/25 14:15 UNV Exam Vital Signs Vital Signs Date Time Temp Pulse Resp B/P (MAP) Pulse Ox O2 Delivery O2 Flow Rate FiO2 04/29/25 13:11 86 04/29/25 13:11 18 128/83 (98) 100 04/29/25 10:40 97.7 97.7 Exam Pt is lying on bed General Appearance: Alert, Oriented X3, Cooperative, Not in acute distress HEENT: Atraumatic, Mucous membranes moist/pink Respiratory: Clear to auscultation, Normal air movement, No added sounds Cardiovascular: Regular rate, Normal S1, Normal S2, No murmurs Abdominal: Active bowel sounds, Soft, no distention, no tenderness Extremities: No edema, Normal pulses, No tenderness/swelling Skin: No Significant rash, except past surgical scars, tenderness on palpation the left upper back Neuro: Normal speech, sensorimotor deficits none Psych/Mental Status: Mental status NL, Mood NL Nurse was there as political advisor during examination Labs/Xrays Labs Test 04/29/25 13:40 04/29/25 11:50 04/29/25 11:03 Range/Units Troponin I High Sensitivity < 3 L </=34 ng/L White Blood Count 9.4 4.4-10.8 10^3/uL Red Blood Count 4.62 4.0-5.20 10^6/uL Hemoglobin 13.4 12.2-16.2 g/dL Hematocrit 39.3 36.0-46.0 % Mean Corpuscular Volume 85.2 80.0-100.0 fL Mean Corpuscular Hemoglobin 29.1 28.0-32.0 pg Mean Corpuscular Hemoglobin Concent 34.2 32.0-36.0 g/dL Red Cell Distribution Width 14.0 11.8-14.3 % Platelet Count 317 140-450 10^3/uL Mean Platelet Volume 8.4 6.9-10.8 fL Neutrophils (%) (Auto) 64.6 37.0-80.0 % Lymphocytes (%) (Auto) 26.0 10.0-50.0 % Monocytes (%) (Auto) 7.8 0.0-12.0 % Eosinophils (%) (Auto) 0.9 0.0-7.0 % Basophils (%) (Auto) 0.7 0.0-2.0 % Neutrophils # (Auto) 6.1 1.6-8.6 10 ^3/uL Lymphocytes # (Auto) 2.4 0.4-5.4 10 ^3/uL Monocytes # (Auto) 0.7 0-1.3 10 ^3/uL Eosinophils # (Auto) 0.1 0-0.8 10 ^3/uL Basophils # (Auto) 0.1 0-0.2 10 ^3/uL Nucleated Red Blood Cells 0.2 % Sodium Level 139 136-145 mmol/L Potassium Level 3.7 3.5-5.1 mmol/L Chloride Level 100 98-107 mmol/L Carbon Dioxide Level 27 20-31 mmol/L Anion Gap 12 5-15 Blood Urea Nitrogen 11 9-23 mg/dL Creatinine 0.82 0.550-1.02 mg/dL Glomerular Filtration Rate Calc 79 >90 mL/min BUN/Creatinine Ratio 13.4 10.0-20.0 Serum Glucose 145 H 74-106 mg/dL Calcium Level 9.1 8.7-10.4 mg/dL Total Bilirubin 0.3 0.2-1.0 mg/dL Aspartate Amino Transferase (AST) 23 13-40 U/L Alanine Aminotransferase (ALT) 16 7-40 U/L Alkaline Phosphatase 119 H 46-116 U/L B-Type Natriuretic Peptide 17.24 0-100 pg/mL Total Protein 8.0 5.7-8.2 g/dL Albumin 4.8 3.2-4.8 g/dL SEPSIS Sepsis Screen Date sepsis recognized/suspect: Apr 29, 2025 Time Sepsis recognized/suspect: 1039 Recent Procedure: No On Antibiotic Therapy: No Respiratory Rate >20: No Heart Rate >90: Yes Temp<36 C (96.8 F) or >38.3 C: No SBP <90 or MAP <65 mmHG: No New Acute Mental Status Change: No Is the patient on CPAP, BIPAP,: No Physician Orders Electrocardigram (04/29/25 11:45) Electrocardigram (04/29/25 13:45) Tetryl Boiling Tub Operator (04/29/25 ) Chest Portable (04/29/25 10:53) Code Status (04/29/25 13:45) Enoxaparin Sodium (Lovenox) (04/30/25 10:00) Complete Blood Count (04/30/25 04:00) Comprehensive Metabolic Panel (04/30/25 04:00) Cardiac Diet-2gna,Lofat,Lochol (04/29/25 Dinner) Condition: Fair (04/29/25 13:45) Acetaminophen Tablet (Tylenol Tablet) (04/29/25 13:45) Admit (04/29/25 14:00) Nitroglycerin Sublingual (Ntrostat Subli (04/29/25 14:00) Morphine Sulfate Injection (04/29/25 14:00) Oxygen By Nasal Cannula (04/29/25 14:00) Stat Ekg For Chest Pain (04/29/25 14:00) Notify Md Of Changes From Base (04/29/25 14:00) Street Cleaner For 24 Hours (04/29/25 14:00) Emergency Dysrhythmia Protocol (04/29/25 14:00) Rhythm Strips Once Every Shift (04/29/25 14:00) Thyroid Stimulating Hormone (04/29/25 14:00) Hemoglobin A1c (04/29/25 14:00) Lipid Panel (04/29/25 14:00) Urinalysis (04/29/25 14:00) Drug Screen (04/29/25 14:00) Lipase (04/29/25 14:00) Acetaminophen Tab Or Cap (Tylenol Tablet (04/29/25 22:00) Amlodipine Tablet (Norvasc Tablet) (04/30/25 10:00) Tramadol Hcl (Ultram) (04/29/25 22:00) (Nf) Simvastatin (04/30/25 10:00) Metoprolol Tartrate Tablet (Lopressor Ta (04/30/25 10:00) Glucose Blood (Accu-Chek Comfort Curve T (04/29/25 18:00) Insulin R (Human) (Insulin R) (04/29/25 18:00) Dextrose 50% Syringe (04/29/25 14:15) Vital Signs Date Time Temp Pulse Resp B/P (MAP) Pulse Ox O2 Delivery O2 Flow Rate FiO2 04/29/25 13:11 86 04/29/25 13:11 86 18 128/83 (98) 100 04/29/25 13:10 125/83 04/29/25 13:10 109 04/29/25 10:49 109 04/29/25 10:40 97.7 114 18 147/83 99 97.7 Laboratory Tests Test 04/29/25 11:03 White Blood Count 9.4 10^3/uL (4.4-10.8) Medications Medications Dose Ordered Sig/Singh Route Start Time Stop Time Status Last Admin Dose Admin Nitroglycerin 0.4 mg ONCE ONCE SL 04/29/25 12:45 04/29/25 12:46 DC 04/29/25 13:10 0.4 MG Assessment/Plan Assessment/Plan #Acute chest pain, rule out ACS #hypertension -EKG -Telemetry -serial troponin I <3, all 3 times -CXR: Unremarkable -BNP 17.24 -Nitroglycerin 0.4 mg Q 5 minute PRN SL -Acetaminophen 650 mg q.6 PRN -Morphine sulfate 2 mg Q 30 PRN -Tramadol 50 mg b.i.d. -amlodipine 5 mg p.o. daily -Metoprolol tartrate 25 mg p.o. daily -lipase -urine Drug screen -COVID, flu tests #Diabetes type 2, -HbA1c -mild sliding scale insulin -Accu-Cheks #Hyperlipidemia -lipid panel, pending -simvastatin 20 mg p.o. daily SINGH #history of arthritis #[id number] lower lumbar degenerative disc disease and facet arthropathy. - seen in of the lumbar spine x-ray done on 04/11/2020 - outpatient follow up with orthopedics - continue alendronate 70 mg per orally Q 7 GI prophylaxis: Not indicated DVT prophylaxis: Lovenox 40 mg subcutaneous daily Diet: cardiac diet Goals of care discussed with the patient for more than 27 minutes: Full code status Case discussed with Dr. Kim. patient and nurse. Plan discussed with: Patient My Orders Orders - TOÑITO RAYMUNDO Procedure Category Date Status Time Code Status CODE 04/29/25 Transmitted 13:45 Enoxaparin Sodium PHA 04/30/25 In Process (Lovenox) 10:00 Complete Blood Count LAB 04/30/25 Verified 04:00 Comprehensive LAB 04/30/25 Verified Metabolic Panel 04:00 Cardiac DIET 04/29/25 Transmitted Diet-2gna,Lofat,Lochol Dinner Condition: Fair CASSIE 04/29/25 In Process 13:45 Acetaminophen Tablet PHA 04/29/25 In Process (Tylenol Tablet) 13:45 Date of Service: Apr 29, 2025 Billing Provider: LAURA KIM MD Common Visit Codes: [id number] INP/OBS CARE (HIGH) TOÑITO RAYMUNDO RESIDENT Apr 29, 2025 14:53
[2025-04-29 14:54] LABS: Lipase 88 U/L (12-53)
[2025-04-29 15:17] VITALS: BP 145/87; PULSE 89; RESP 15; TEMP 97.9; O2SAT 99
--- NOTE | 2025-04-29 15:57 | DVH ---
CLINICAL HISTORY: evaluate for acute pancreatitis TECHNIQUE: Complete ultrasound exam of the abdomen was performed. COMPARISON: None FINDINGS: The liver is normal in echogenicity with no focal parenchymal abnormality. The liver measures 13.3 c m in length. The common duct is 5 mm. Gallbladder is normal without shadowing stone or tenderness. The partially visualized pancreas is within normal limits. No ascites or fluid collection. The right kidney is 9 cm and the left kidney is 10 cm. No hydronephrosis, increased echogenicity, sh adowing stone, or focal lesion. Spleen is within normal limits. The aorta and IVC are normal caliber and patent. IMPRESSION: NO SIGNIFICANT SONOGRAPHIC ABNORMALITY OF THE ABDOMEN.
[2025-04-29] MEDS: InsuLIN REG 1unit/0.01ml Soln (100units/ml) SC SCH (18:00)
[2025-04-29] MEDS: ACCU-CHEK COMFORT CURVE STRIP VI SCH (18:17)
[2025-04-29] MEDS: PANTOPRAZOLE 40 MG/10 ML VIAL INJ IV ONE (18:43)
[2025-04-29 20:48] VITALS: BP 123/84; PULSE 87; RESP 18; TEMP 97.7; O2SAT 97
[2025-04-29 21:31] LABS: COVID19 ANTIGEN SOFIA FIA NEGATIVE (NEGATIVE)
[2025-04-29] MEDS: ACETAMINOPHEN 500 MG TAB or CAP PO SCH (22:00)
[2025-04-29 22:48] VITALS: PULSE 87; RESP 19; O2SAT 99
[2025-04-29] MEDS: ATORVASTATIN 20 MG TAB PO SCH (23:29)
[2025-04-30] VITALS (8 sets, daily range): BP systolic 108–124; BP diastolic 77–86; PULSE 70–89; RESP 18–19; TEMP 96.9–98.2; O2SAT 96–98
[2025-04-30 06:09] LABS: Hematocrit 37.2 % (36.0-46.0); Hemoglobin 13.1 g/dL (12.2-16.2); Mean Corpuscular Hemoglobin 29.5 pg (28.0-32.0); Mean Corpuscular Volume 84.0 fL (80.0-100.0); Nucleated Red Blood Cells % 0.0 %
[2025-04-30 06:16] LABS: Alanine Aminotransferase 16 U/L (7-40); Albumin 4.4 g/dL (3.2-4.8); Alkaline Phosphatase 99 U/L (46-116); Anion Gap 11 (5-15); BUN/Creatinine Ratio 12.9 (10.0-20.0); Bilirubin, Total 0.5 mg/dL (0.2-1.0); Calcium 9.0 mg/dL (8.7-10.4); Carbon Dioxide 28 mmol/L (20-31); Chloride 101 mmol/L (98-107); Glucose 94 mg/dL (74-106); Sodium 140 mmol/L (136-145); Total Protein 7.4 g/dL (5.7-8.2)
[2025-04-30 06:21] LABS: Blood Urea Nitrogen 9 mg/dL (9-23); Potassium 3.5 mmol/L (3.5-5.1)
--- NOTE | 2025-04-30 08:20 | ECG ---
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
[2025-04-30] MEDS: ENOXAPARIN SOD 40 MG/0.4 ML SYRINGE SC SCH (09:25)
[2025-04-30] MEDS: METOPROLOL SUCCINATE XL 50 MG TAB PO SCH (09:26)
[2025-04-30] MEDS: ATORVASTATIN 20 MG TAB PO SCH (12:37)
[2025-04-30] MEDS: IBUPROFEN 600 MG TAB PO ONE (12:37)
--- NOTE | 2025-04-30 14:02 | DVHPNRES ---
Progress Note Date Seen: Apr 30, 2025 Resident Creating Document: TOÑITO RAYMUNDO RESIDENT Has the PT tested + for MRSA If YES, has PT been informed?: No Medical Necessity Reason Pt with a Central, PICC or Fol: No Subjective Review of Systems 64-year-old female Radha Gaol is a Pashto speaking lady with a past medical history of hypertension, diabetes mellitus type 2, hyperlipidemia, arthritis, brain tumor came in with complaints of 1 day of left-sided upper back pain that radiates to the front of her Left chest. Patient reports that the pain is 8/10 in intensity, began suddenly yesterday, continuous in nature, increased by movement of the left arm, and has no relieving factors. It is not associated with shortness of breath, retrosternal chest pain, cough, nausea, or vomiting. She hasnt taken any pain medications at home. She denies any sick contacts, travel history or any mechanical falls. Chest x-ray in the emergency was normal, serial troponins were negative, WBC and BNP normal. Patient will be admitted to telemetry for further workup of chest pain PMH: Hypertension, diabetes type 2, hyperlipidemia, arthritis, brain tumor Past surgical history: Appendectomy Family history: Reviewed and noncontributory to the management of this case Social history: Patient denies taking any alcohol, drugs and denies tobacco use Allergies: Denies Medications: Amlodipine 5 mg, simvastatin 20 mg, metoprolol 25 mg, metformin 1000 mcg, alendronate 70 mg Code status: Full code ROS 04/30/25: Patient was seen and examined by me at the bedside. Patient still complains of back pain that radiates to her chest. Troponins, EKG, repeated EKG, ultrasound abdomen all came back negative. Patient was given lidocaine 5% patch and ibuprofen 600 mg for pain relief. Possible discharge tomorrow Objective vital signs Vital Sign Date Time Temp Pulse Resp B/P (MAP) Pulse Ox O2 Delivery O2 Flow Rate FiO2 04/30/25 09:26 89 112/79 04/30/25 09:00 97.6 18 98 97.6 04/30/25 08:00 Room Air* 0 21 Total Intake and Output 04/29/25 04/29/25 04/30/25 15:00 23:00 07:00 Intake Total 240 ml Balance 240 ml medications Current Medications Medications Dose Ordered Sig/Singh Route Start Time Stop Time Status Last Admin Dose Admin Enoxaparin Sodium 40 mg DAILY SC 04/30/25 10:00 04/30/25 09:25 40 MG Acetaminophen 650 mg Q6HP PRN PO 04/29/25 13:45 Hold Nitroglycerin 0.4 mg Q5MINP PRN SL 04/29/25 14:00 Morphine Sulfate 2 mg Q30M PRN IV 04/29/25 14:45 Acetaminophen 500 mg TID PO 04/29/25 22:00 04/30/25 06:32 500 MG Amlodipine Besylate 5 mg DAILY PO 04/30/25 10:00 04/30/25 09:24 5 MG Metoprolol Succinate 25 mg DAILY PO 04/30/25 10:00 04/30/25 09:26 25 MG Tramadol HCl 50 mg BID PO 04/29/25 22:00 04/30/25 09:25 50 MG Diagnostic Test (Pha) 1 strip Q6HR 04/29/25 18:00 04/30/25 12:15 1 STRIP Insulin Human Regular Q6HR SC 04/29/25 18:00 Dextrose 50 ml UD PRN IV 04/29/25 14:15 Lidocaine 1 patch DAILY TOP 05/01/25 10:00 Atorvastatin Calcium 20 mg HS PO 04/30/25 12:00 04/30/25 12:37 20 MG Examination Pt is lying on bed General Appearance: Alert, Oriented X3, Cooperative, Not in acute distress HEENT: Atraumatic, Mucous membranes moist/pink Respiratory: Clear to auscultation, Normal air movement, No added sounds Cardiovascular: Regular rate, Normal S1, Normal S2, No murmurs Abdominal: Active bowel sounds, Soft, no distention, no tenderness Extremities: No edema, Normal pulses, No tenderness/swelling Skin: No Significant rash, except past surgical scars, tenderness on palpation the left upper back And on the left breast Neuro: Normal speech, sensorimotor deficits none Psych/Mental Status: Mental status NL, Mood NL laboratory and microbiology Laboratory Tests 04/30/25 04:34 Test 04/30/25 04:34 Range/Units Serum Glucose 94 74-106 mg/dL Labs and/or images reviewed: Labs reviewed by me, Image(s) reviewed by me Problem List/Assessment/Plan Problem List/Assessment/Plan #Acute chest pain, ruled out ACS, due to costochondritis #hypertension -EKG -Telemetry -serial troponin I <3, all 3 times -CXR: Unremarkable -BNP 17.24 -Nitroglycerin 0.4 mg Q 5 minute PRN SL -Acetaminophen 650 mg q.6 PRN -Morphine sulfate 2 mg Q 30 PRN -Tramadol 50 mg b.i.d. -amlodipine 5 mg p.o. daily -Metoprolol tartrate 25 mg p.o. daily -lipase 88 -USG abdomen shows no significant sonographic abnormality of the abdomen -urine Drug screen,pending -COVID, flu tests-both negative #Diabetes type 2, HbA1c 6.2 -mild sliding scale insulin -Accu-Cheks #Hyperlipidemia -lipid panel, triglyceride 210, cholesterol 146, LDL 53, lipase 88 -atorvastatin 20 mg p.o. daily singh #history of arthritis #[id number] lower lumbar degenerative disc disease and facet arthropathy. - seen in of the lumbar spine x-ray done on 04/11/2020 - outpatient follow up with orthopedics - continue alendronate 70 mg per orally Q7days GI prophylaxis: Not indicated DVT prophylaxis: Lovenox 40 mg subcutaneous daily Diet: cardiac diet Goals of care discussed with the patient for more than 27 minutes: Full code status Case discussed with Dr. Kim. patient and nurse. Plan discussed with: Patient My Orders My Orders Orders - TOÑITO RAYMUNDO Procedure Category Date Status Time Abdomen Complete US 04/29/25 Resulted Sonogram 15:02 Lidocaine 5% Topical PHA 05/01/25 In Process Patch (Lidoderm 5% 10:00 Atorvastatin (Lipitor) PHA 04/30/25 In Process 12:00 Date of Service: Apr 30, 2025 Billing Provider: LAURA KIM MD Common Visit Codes: [id number] INP/OBS CARE(HIGH) TOÑITO RAYMUNDO Apr 30, 2025 14:01 LAURA KIM MD May 02, 2025 00:14
[2025-04-30] MEDS: BACLOFEN 10 MG TAB PO SCH (21:51)
[2025-05-01 01:00] VITALS: BP 103/68; PULSE 82; RESP 20; TEMP 98.3; O2SAT 98
[2025-05-01 05:00] VITALS: BP 104/68; PULSE 79; RESP 20; TEMP 98.1; O2SAT 97
[2025-05-01 06:03] LABS: Hematocrit 39.3 % (36.0-46.0); Hemoglobin 13.7 g/dL (12.2-16.2); Mean Corpuscular Hemoglobin 29.8 pg (28.0-32.0); Mean Corpuscular Volume 85.6 fL (80.0-100.0); Nucleated Red Blood Cells % 0.1 %
[2025-05-01 06:08] LABS: Anion Gap 10 (5-15); Carbon Dioxide 29 mmol/L (20-31); Chloride 100 mmol/L (98-107); Potassium 4.1 mmol/L (3.5-5.1); Sodium 139 mmol/L (136-145)
[2025-05-01 06:09] LABS: Calcium 9.4 mg/dL (8.7-10.4)
[2025-05-01 06:15] LABS: BUN/Creatinine Ratio 14.3 (10.0-20.0); Blood Urea Nitrogen 10 mg/dL (9-23)
[2025-05-01 06:35] LABS: Glucose 106 mg/dL (74-106)
[2025-05-01 08:00] VITALS: PULSE 78; PULSE 85; RESP 18; O2SAT 94
[2025-05-01 08:35] VITALS: BP 109/67; PULSE 78; RESP 18; TEMP 97.9; O2SAT 94
[2025-05-01] MEDS ORDERED: LIDOCAINE 5% TOPICAL PATCH TOP SCH (10:00)
--- NOTE | 2025-05-01 11:00 | DVHDSRES ---
Discharge Summary Date of Admission Resident Creating Document: TOÑITO RAYMUNDO RESIDENT Apr 29, 2025 at 13:45 Date of Discharge: May 01, 2025 Admitting Diagnosis Acute chest pain, ruled out ACS, due to costochondritis Labs/Diagnostic Data: Laboratory Results Test 05/01/25 06:23 05/01/25 04:40 04/30/25 04:34 04/29/25 20:00 POC Glucose 107 mg/dl (70-106) White Blood Count 8.2 10^3/uL (4.4-10.8) Red Blood Count 4.59 10^6/uL (4.0-5.20) Hemoglobin 13.7 g/dL (12.2-16.2) Hematocrit 39.3 % (36.0-46.0) Mean Corpuscular Volume 85.6 fL (80.0-100.0) Mean Corpuscular Hemoglobin 29.8 pg (28.0-32.0) Mean Corpuscular Hemoglobin Concent 34.8 g/dL (32.0-36.0) Red Cell Distribution Width 14.0 % (11.8-14.3) Platelet Count 326 10^3/uL (140-450) Mean Platelet Volume 8.6 fL (6.9-10.8) Neutrophils (%) (Auto) 53.7 % (37.0-80.0) Lymphocytes (%) (Auto) 36.5 % (10.0-50.0) Monocytes (%) (Auto) 8.6 % (0.0-12.0) Eosinophils (%) (Auto) 0.9 % (0.0-7.0) Basophils (%) (Auto) 0.3 % (0.0-2.0) Neutrophils # (Auto) 4.4 10 ^3/uL (1.6-8.6) Lymphocytes # (Auto) 3.0 10 ^3/uL (0.4-5.4) Monocytes # (Auto) 0.7 10 ^3/uL (0-1.3) Eosinophils # (Auto) 0.1 10 ^3/uL (0-0.8) Basophils # (Auto) 0 10 ^3/uL (0-0.2) Nucleated Red Blood Cells 0.1 % Sodium Level 139 mmol/L (136-145) Potassium Level 4.1 mmol/L (3.5-5.1) Chloride Level 100 mmol/L (98-107) Carbon Dioxide Level 29 mmol/L (20-31) Anion Gap 10 (5-15) Blood Urea Nitrogen 10 mg/dL (9-23) Creatinine 0.70 mg/dL (0.550-1.02) Glomerular Filtration Rate Calc 96 mL/min (>90) BUN/Creatinine Ratio 14.3 (10.0-20.0) Serum Glucose 106 mg/dL (74-106) Calcium Level 9.4 mg/dL (8.7-10.4) Total Bilirubin 0.5 mg/dL (0.2-1.0) Aspartate Amino Transferase (AST) 18 U/L (13-40) Alanine Aminotransferase (ALT) 16 U/L (7-40) Alkaline Phosphatase 99 U/L (46-116) Total Protein 7.4 g/dL (5.7-8.2) Albumin 4.4 g/dL (3.2-4.8) Influenza Type A Antigen Negative (Negative) Influenza Type B Antigen Negative (Negative) SARS-CoV-2 Antigen (Rapid) Negative (NEGATIVE) Test 04/29/25 13:40 04/29/25 11:50 04/29/25 11:03 Troponin I High Sensitivity < 3 ng/L (</=34) Triglycerides Level 210 mg/dL (< 150) Cholesterol Level 146 mg/dL (< 200) LDL Cholesterol 74 mg/dL (< 100) HDL Cholesterol 53 mg/dL (40-59) Lipase 88 U/L (12-53) Hemoglobin A1c 6.2 % A1C (<5.7) B-Type Natriuretic Peptide 17.24 pg/mL (0-100) Thyroid Stimulating Hormone (TSH) 1.37 uIU/mL (0.55-4.78) Other Laboratory Tests 05/01/25 04:40 Brief Hx & Hospital Course: 64-year-old female Sanchez Jacome is a [place] speaking lady with a past medical history of hypertension, diabetes mellitus type 2, hyperlipidemia, arthritis, brain tumor came in with complaints of 1 day of left-sided upper back pain that radiates to the front of her Left chest. Patient reports that the pain is 8/10 in intensity, began suddenly yesterday, continuous in nature, increased by movement of the left arm, and has no relieving factors. It is not associated with shortness of breath, retrosternal chest pain, cough, nausea, or vomiting. She hasnt taken any pain medications at home. She denies any sick contacts, travel history or any mechanical falls. Chest x-ray in the emergency was normal, serial troponins were negative, WBC and BNP normal. Patient will be admitted to telemetry for further workup of chest pain PMH: Hypertension, diabetes type 2, hyperlipidemia, arthritis, brain tumor Past surgical history: Appendectomy Family history: Reviewed and noncontributory to the management of this case Social history: Patient denies taking any alcohol, drugs and denies tobacco use Allergies: Denies Medications: Amlodipine 5 mg, simvastatin 20 mg, metoprolol 25 mg, metformin 1000 mcg, alendronate 70 mg Code status: Full code Brief history of hospitalization: Patient came in with back pain which was radiating to the front left chest. We admitted her for further cardiac workup. We did an EKG which was normal and put her on telemetry to monitor. Serial troponin I was negative all 3 times. Chest x-ray was unremarkable. BNP was 17.24. We gave the patient denies nitroglycerin on admission. Morphine and acetaminophen were kept PRN for pain control. Tramadol was given twice a day. We continued patient's home medication metoprolol tartrate 25 mg p.o. daily. A lipase level was looked at which was 88, slightly high which is why we did the ultrasound of the abdomen which showed no significant sonographic abnormality of the abdomen. COVID and flu tests were also done to rule out lung cause of chest pain. Both tests came back negative. A repeat EKG was done the next morning which came back negative as well. Patient has type 2 diabetes and HbA1c was 6.2. We monitored her blood glucose levels every day and began her on mild sliding scale insulin. For hyperlipidemia we did a lipid panel in triglyceride was 210, cholesterol 146, LDL 53 and lipase 88. Atorvastatin 20 mg p.o. daily was given. For history of arthritis and lower lumbar degenerative disc disease and facet arthropathy patient has been counseled to follow up with Orthopedics. Alendronate 70 mg per orally Q 7 is to be continued. During hospitalization we also gave patient DVT prophylaxis with Lovenox 40 mg subcutaneous daily and kept her on a cardiac diet. Since patient still complained of pain we further gave her ibuprofen 600 mg and lidocaine 5% patch to help with the pain. Patient is now stable for discharge and can go home. She has agreed with the discharge plan Pt is lying on bed General Appearance: Alert, Oriented X3, Cooperative, Not in acute distress HEENT: Atraumatic, Mucous membranes moist/pink Respiratory: Clear to auscultation, Normal air movement, No added sounds Cardiovascular: Regular rate, Normal S1, Normal S2, No murmurs Abdominal: Active bowel sounds, Soft, no distention, no tenderness Extremities: No edema, Normal pulses, No tenderness/swelling Skin: No Significant rash, except past surgical scars, mild tenderness on palpation the left upper back And on the left breast Neuro: Normal speech, sensorimotor deficits none Psych/Mental Status: Mental status NL, Mood NL Nurse was there as volleyball referee during examination Operations or Procedures EXAM: XY CHEST PORTABLE FINDINGS/IMPRESSION: LUNGS: No pleural effusion, consolidation, or pneumothorax. MEDIASTINUM: Unremarkable. BONES: No acute osseous abnormality. OTHER: None. PROCEDURE(s): ABDC - ABDOMEN COMPLETE SONOGRAM REASON: evaluate for acute pancreatitis IMPRESSION: NO SIGNIFICANT SONOGRAPHIC ABNORMALITY OF THE ABDOMEN. Condition at Discharge: Stable Final Diagnosis/Problems List #Acute chest pain, ruled out ACS, due to costochondritis #hypertension #Diabetes type 2, HbA1c 6.2 #Hyperlipidemia #history of arthritis #[id number] lower lumbar degenerative disc disease and facet arthropathy. Discharge Disposition: Home Discharge Instruct/Medications Diet: Consistent carbohydrate, Cardiac 2g Na,low cholest Activity: No Restrictions, As Tolerated Follow Up/Referral: Follow up with PCP in 10 days Follow up at discharge clinic within 2 weeks Medications: Baclofen 10 mg twice a day for 10 days Lidocaine patch 5% topical as needed Diclofenac gel as needed Ibuprofen 600 mg as needed Scheduled Acetaminophen (Tylenol Extra Strength Fo), 500 MG PO TID Amlodipine Besylate (Amlodipine Besylate), 5 MG PO DAILY, (Reported) Baclofen (Baclofen), 10 MG PO TID Lidocaine (Lidoderm 5% Topical Patch), 10 PATCH TOP DAILY Simvastatin (Simvastatin), 20 MG PO DAILY, (Reported) Tramadol HCl (Tramadol HCl), 50 MG PO BID Miscellaneous Medications Glipizide (Glipizide), 5 MG PO, (Reported) Metformin HCl (Metformin Hydrochloride), 1,000 MG PO, (Reported) Metoprolol Tartrate (Metoprolol Tartrate), 25 MG PO, (Reported) Discontinued Medications Amoxicillin & Pot Clavulanate (Augmentin), 1 TAB PO BID Cephalexin Monohydrate (Cephalexin), 1 CAP PO TID Discharge Statement: "Patient was advised to return to the ER or call 911 if any headaches, dizziness, shortness of breath, chest pain, abdominal pain, bleeding, fevers, or worsening of medical condition. Patient was counseled about treatment plan, medications, possible side effects, patientverbalized understanding. All questions were answered to the best of my ability. This discharge took greater then 30 minutes in planning, reviewing documentation, counseling the patient, and discussing with other team members." ASSESSMENT ASSESSMENT Assessment Acute chest pain, ruled out ACS, due to costochondritis Date of Service: May 01, 2025 Billing Provider: LAURA KIM MD Common Visit Codes: 69028-GNG/OBS DISCH DAY >30min TOÑITO RAYMUNDO May 01, 2025 11:00 LAURA KIM MD May 01, 2025 22:10
[2025-05-01] MEDS ORDERED: BACL10TA PO (11:25)
[2025-05-01] MEDS ORDERED: LIDO5DIS21 TOP (11:25)
[2025-05-01 11:33] VITALS: BP 109/67; PULSE 78; RESP 18; TEMP 98.6; O2SAT 98
[2025-05-06] MEDS ORDERED: ALENDRONATE SODIUM 10 MG TAB PO SCH (06:00)
== END 2025-05-01 11:51 | disposition home or self-care (01) | DRG 206 ==
LOC: ER 10:39 → OVERFLOW 13:45 → TELE-WESTW 22:48
PROVIDERS: ADMIT Student in an Organized Health Care Education/Training Program; ATTEND Student in an Organized Health Care Education/Training Program
DX: M94.0 Chondrocostal junction syndrome [Tietze] (principal); I10 Essential (primary) hypertension; E11.9 Type 2 diabetes mellitus without complications; E78.5 Hyperlipidemia, unspecified; Z20.822 Contact with and (suspected) exposure to COVID-19; M51.369 Other intervertebral disc degeneration, lumbar region without mention of lumbar back pain or lower extremity pain; F41.9 Anxiety disorder, unspecified; M47.896 Other spondylosis, lumbar region; Z79.899 Other long term (current) drug therapy
CPT/HCPCS: 36415; 71045; 76700; 80048; 80053; 80061; 82962; 83036; 83690; 83880; 84443; 84484; 85025; 87426; 87804; 93005; G0378; J2470